=== PATIENT | female | born 1955 ===

== ENCOUNTER 2018-11-21 13:16 | Inpatient (IN) | payer MEDICAID ==
--- NOTE | 2018-11-21 13:35 | Event Note ---
ED Screening Note Date of service: 11/21/18 Time: 13:31 ED Screening Note: 63 y/o female comes in for chest pain, SOB and worsting of her speech 2 days ago. Had nose bleed and out of mouth on Wednesday. Increase diff with speech this morning about 0830. This initial assessment/diagnostic orders/clinical plan/treatment(s) is/are subject to change based on patients health status, clinical progression and re- assessment by fellow clinical providers in the ED. Further treatment and workup at subsequent clinical providers discretion. Patient/guardian urged not to elope from the ED as their condition may be serious if not clinically assessed and managed. Initial orders include:
[2018-11-21 14:11] LABS: Basophils % (Auto) 0.6 % (0.0-1.8); Eosinophils % (Auto) 0.7 % (0.0-4.3); Hematocrit 31.8 % (30.3-42.9); Hemoglobin 10.4 gm/dl (10.1-14.3); Lymphocytes # (Auto) 1.8 K/mm3 (1.2-5.4); Lymphocytes % (Auto) 40.8 % (13.4-35.0); Mean Corpuscular HGB Conc 33 % (30-34); Mean Corpuscular Volume 85 fl (79-97); Monocytes # (Auto) 0.3 K/mm3 (0.0-0.8); Monocytes % (Auto) 6.3 % (0.0-7.3); Platelet Count 191 K/mm3 (140-440); Red Blood Count 3.75 M/mm3 (3.65-5.03)
--- NOTE | 2018-11-21 14:20 | Emergency Department Report ---
ED Neuro Deficit HPI - General Chief Complaint: Neuro Symptoms/Deficit Stated Complaint: CHEST PAIN/TIGHT Time Seen by Provider: 11/21/18 13:31 Source: patient, old records reviewed Mode of arrival: Ambulatory Limitations: No Limitations - History of Present Illness Initial Comments: 63-year-old female with a past medical history of COPD, CVA with residual right- sided deficit, not insulin-dependent diabetes, and hypertension presents to the Hospital complaining of not feeling well for the past 2 days. She's had intermittent headache, epistaxis, and weakness. At her baseline patient is able to ambulate with a cane and sometimes independently without assistance device Since 4 AM patient has noticed that she had increased numbness described as a c old feeling to the right side of her body and increased right-sided weakness compared to baseline. He is having difficulty ambulating, difficulty speaking, and left-sided facial weakness which is new since 4 AM. Patient takes some aspirin and went back to sleep. She woke up at 8 AM with unimproved symptoms and decided come to the hospital. Patient has been noncompliant with her daily aspirin regimen and has been out of her blood pressure medication times one week. Pt also c/o chest pain. - Related Data Allergies/Adverse Reactions: Allergies Allergy/AdvReac Type Severity Reaction Status Date / Time No Known Allergies Allergy Unverified 11/22/14 09:45 ED Review of Systems ROS: Stated complaint: CHEST PAIN/TIGHT Other details as noted in HPI Comment: All other systems reviewed and negative ED Past Medical Hx - Past Medical History Hx Hypertension: Yes Hx CVA: Yes (01/2014- right) Hx Diabetes: Yes Hx COPD: Yes - Surgical History Additional Surgical History: left index finger amputation - Social History Smoking Status: Never Smoker Substance Use Type: None ED Neuro Physical Exam - General Limitations: No Limitations Suspected Stroke: Yes - Neurological Exam Neurological exam: Present: alert - NIHSS Assessment Interval: Baseline 1a. Level of Consciousness: alert/keenly responsive 1b. LOC Questions: answers both correctly 1c. LOC Commands: performs tasks correctly 2. Best Gaze: normal 3. Visual: no visual loss 4. Facial Palsy: partial paralysis 5b. Motor Arm Right: drift 5a. Motor Arm Left: no drift 6a. Motor Leg Left: drift 6b. Motor Leg Right: drift 7. Limb Ataxia: absent 8. Sensory: normal 9. Best Language: no aphasia 10. Dysarthria: mild/moderate dysarthria 11. Extinction/Inattention: no abnormality Total Score: 6 Stroke Severity: Moderate Stroke - Other Other exam information: General: No acute distress Head: Atraumatic normocephalic Eyes: Normal appearance, pupils equal reactive to light, extraocular movements intact ENT: Normal oropharynx Neck: Normal appearance, no C-spine tenderness, no meningismus Chest: Clear to auscultation bilaterally, no wheezes, rales, or crackles Cardiovascular: Regular rate and rhythm Abdomen: Soft, nondistended, nontender, no rebound or guarding, normal bowel sounds Back: Normal inspection, nontender Extremity: Normal inspection, no deformity, full range of motion Neuro: Alert and oriented 3, see NIH stroke scale Psychiatric: Normal affect Skin: No rash, warmth, or erythema ED Course Vital Signs 11/21/18 11/21/18 11/21/18 13:31 13:51 14:01 Temperature 98.9 F Pulse Rate 61 68 61 Respiratory 20 16 12 Rate Blood Pressure 239/105 238/107 O2 Sat by Pulse 99 100 Oximetry 11/21/18 14:31 Temperature Pulse Rate 57 L Respiratory 13 Rate Blood Pressure 179/82 O2 Sat by Pulse 98 Oximetry - Lab Data Result diagrams: 11/21/18 13:50 11/21/18 13:50 Lab Results 11/21/18 11/21/18 11/21/18 Range/Units 13:44 13:50 13:50 WBC 4.3 L (4.5-11.0) K/mm3 RBC 3.75 (3.65-5.03) M/mm3 Hgb 10.4 (10.1-14.3) gm/dl Hct 31.8 (30.3-42.9) % MCV 85 (79-97) fl MCH 28 (28-32) pg MCHC 33 (30-34) % RDW 20.1 H (13.2-15.2) % Plt Count 191 (140-440) K/mm3 Lymph % (Auto) 40.8 H (13.4-35.0) % [place]y % (Auto) 6.3 (0.0-7.3) % Eos % (Auto) 0.7 (0.0-4.3) % Baso % (Auto) 0.6 (0.0-1.8) % Lymph # 1.8 (1.2-5.4) K/mm3 D[place]y # 0.3 (0.0-0.8) K/mm3 Eos # 0.0 (0.0-0.4) K/mm3 Baso # 0.0 (0.0-0.1) K/mm3 Seg Neutrophils % 51.6 (40.0-70.0) % Seg Neutrophils # 2.2 (1.8-7.7) K/mm3 PT 12.5 (12.2-14.9) Sec. INR 0.96 (0.87-1.13) APTT 27.2 (24.2-36.6) Sec. Thrombin Time (15.1-19.6) Sec. Sodium (137-145) mmol/L Potassium (3.6-5.0) mmol/L Chloride (98-107) mmol/L Carbon Dioxide (22-30) mmol/L Anion Gap mmol/L BUN (7-17) mg/dL Creatinine (0.7-1.2) mg/dL Estimated GFR ml/min BUN/Creatinine Ratio % Glucose (65-100) mg/dL POC Glucose 107 H (70-105) Calcium (8.4-10.2) mg/dL Troponin T (0.00-0.029) ng/mL 11/21/18 11/21/18 Range/Units 13:50 13:50 WBC (4.5-11.0) K/mm3 RBC (3.65-5.03) M/mm3 Hgb (10.1-14.3) gm/dl Hct (30.3-42.9) % MCV (79-97) fl MCH (28-32) pg MCHC (30-34) % RDW (13.2-15.2) % Plt Count (140-440) K/mm3 Lymph % (Auto) (13.4-35.0) % [place]y % (Auto) (0.0-7.3) % Eos % (Auto) (0.0-4.3) % Baso % (Auto) (0.0-1.8) % Lymph # (1.2-5.4) K/mm3 [place]y # (0.0-0.8) K/mm3 Eos # (0.0-0.4) K/mm3 Baso # (0.0-0.1) K/mm3 Seg Neutrophils % (40.0-70.0) % Seg Neutrophils # (1.8-7.7) K/mm3 PT (12.2-14.9) Sec. INR (0.87-1.13) APTT (24.2-36.6) Sec. Thrombin Time 16.3 (15.1-19.6) Sec. Sodium 142 (137-145) mmol/L Potassium 4.1 (3.6-5.0) mmol/L Chloride 106.0 (98-107) mmol/L Carbon Dioxide 24 (22-30) mmol/L Anion Gap 16 mmol/L BUN 15 (7-17) mg/dL Creatinine 0.6 L (0.7-1.2) mg/dL Estimated GFR > 60 ml/min BUN/Creatinine Ratio 25 % Glucose 103 H (65-100) mg/dL POC Glucose (70-105) Calcium 9.5 (8.4-10.2) mg/dL Troponin T < 0.010 (0.00-0.029) ng/mL - EKG Data -: EKG Interpreted by Nv EKG shows normal: sinus rhythm, axis (qrs 60), QRS complexes (qrsd 92), ST-T waves (no stemi/lvh) Rate: bradycardia (58) When compared to previous EKG there are: previous EKG unavailable - Radiology Data Radiology results: report reviewed CT head/brain wo con INDICATION / CLINICAL INFORMATION: 63 years Female; MAIN: neuro deficits <6hrs or sx present upon awakening CODE STROKE [phone]. TECHNIQUE: Routine CT head without contrast. All CT scans at this location are performed using CT dose reduction for ALARA by means of automated exposure control. COMPARISON: None. FINDINGS: BRAIN / INTRACRANIAL CONTENTS: No acute hemorrhage, mass effect, midline shift, hydrocephalus, or acute, large territorial infarct. No chronic infarct or focal atrophy. Normal brain volume and ventricular/sulcal size for age. No significant white matter abnormality. CRANIOCERVICAL JUNCTION: No significant abnormality. ORBITS: No significant abnormality of visualized orbits. SINUSES / MASTOIDS: No significant abnormality of the visualized paranasal sinuses or mastoid air cells. ADDITIONAL FINDINGS: Atherosclerotic disease seen in the anterior circulation. IMPRESSION: 1. No focal mass, hemorrhage, hydrocephalus, or acute, large territorial infarct. CHEST X-RAY, 2 VIEWS: HISTORY: Shortness of breath FINDINGS: Heart size and pulmonary vascularity are borderline. Trace pleural effusions are suspected on the lateral image. No consolidation or pneumothorax. The thoracic cage is grossly intact. IMPRESSION: Correlate for early CHF. - Medical Decision Making Patient presents with elevated blood pressure and medication noncompliance BP is spontaneously reducing. Neurology evaluated patient not a TPA candidate Hospitalist informed for admission pt also c/o cp. ekg not stemi, initial trop neg - Differential Diagnosis CVA, ICH, hypertensive emergency - Thrombolytic Inclusion/Exclusion Thrombolytic Exclusion Criteria: Symptom Onset > 3 Hours Critical Care Time: No Critical care attestation.: If time is entered above; I have spent that time in minutes in the direct care of this critically ill patient, excluding procedure time. ED Disposition Clinical Impression: Hemiparesis affecting right side as late effect of cerebrovascular accident, Slurred speech, Weakness, Uncontrolled hypertension, Noncompliance with medication regimen, Diabetes, Chest pain Disposition: DC-[id number] OP ADMIT IP TO THIS HOSP Is pt being admited?: Yes Does the pt Need Aspirin: Yes Condition: Stable Instructions: Chest Pain (ED) Time of Disposition: 14:54
[2018-11-21 14:24] LABS: Red Cell Distribution Width 20.1 % (13.2-15.2)
[2018-11-21 14:26] LABS: BUN/Creatinine Ratio 25; Blood Urea Nitrogen 15 mg/dL (7-17); Calcium 9.5 mg/dL (8.4-10.2); Hemolysis Index 4
[2018-11-21 14:27] LABS: INR 0.96 (0.87-1.13)
[2018-11-21 14:28] LABS: Partial Thromboplastin Time 27.2 Sec. (24.2-36.6)
--- NOTE | 2018-11-21 14:40 | Cat Scan Report ---
CT head/brain wo con INDICATION / CLINICAL INFORMATION: 63 years Female; MAIN: neuro deficits <6hrs or sx present upon awakening CODE STROKE [phone]. TECHNIQUE: Routine CT head without contrast. All CT scans at this location are performed using CT dos e reduction for ALARA by means of automated exposure control. COMPARISON: None. FINDINGS: BRAIN / INTRACRANIAL CONTENTS: No acute hemorrhage, mass effect, midline shift, hydrocephalus, or acu te, large territorial infarct. No chronic infarct or focal atrophy. Normal brain volume and ventricul ar/sulcal size for age. No significant white matter abnormality. CRANIOCERVICAL JUNCTION: No significant abnormality. ORBITS: No significant abnormality of visualized orbits. SINUSES / MASTOIDS: No significant abnormality of the visualized paranasal sinuses or mastoid air berna ls. ADDITIONAL FINDINGS: Atherosclerotic disease seen in the anterior circulation. IMPRESSION: 1. No focal mass, hemorrhage, hydrocephalus, or acute, large territorial infarct. Signer Name: Flako Meléndez MD, III Signed: 11/21/2018 2:36 PM Workstation Name: [id number]
[2018-11-21] MEDS ORDERED: ASPIRIN PO ONE (14:54)
--- NOTE | 2018-11-21 15:15 | XRay Report ---
CHEST 1 VIEW INDICATION: sob, cp. COMPARISON: 11/22/2014 FINDINGS: Support devices: None. Heart: Borderline cardiomegaly. Lungs/Pleura: No acute air space or interstitial disease. Additional findings: None. IMPRESSION: 1. No acute findings. Signer Name: Awais Calabrese MD Signed: 11/21/2018 3:10 PM Workstation Name: [id number]
--- NOTE | 2018-11-21 16:25 | Emergency Department Report ---
ED Neuro Deficit HPI - General Chief Complaint: Neuro Symptoms/Deficit Stated Complaint: CHEST PAIN/TIGHT Time Seen by Provider: 11/21/18 13:31 Source: patient, old records reviewed Mode of arrival: Ambulatory Limitations: No Limitations - History of Present Illness Initial Comments: [facility] TeleStroke Metrics: LKW: Wednesday Door Time: 1316 [facility] Contacted: 1340 [facility] at Bedside: 1345 NIHSS: 1355 Decision on Alteplase: Not to give as her last known well time is greater than 4.5 hours prior to her presentation. Interventional Candidate: Not a candidate as her symptoms are not consistent with a large vessel proximal occlusion. Chief Complaint: Altered mental status and chest tightness HPI: Asked to see this patient in telemedicine consultation. Consultation was performed with assistance of ancillary / medical staff at bedside. Verbal consent to perform the examination with telemedicine was obtained. Patient agreed to proceed with the consultation. 63-year-old right-handed -[place] female who comes to the emergency room for chest tightness and overall not feeling well. She does report a history of stroke several years ago, and has chronic right-sided weakness. She currently is not taking any aspirin. Her brother about a week ago, and they recently laid him to rest on Wednesday. Patient states that she started feeling funny on Wednesday. She took some Tylenol and slept. She continued to sleep all day on Wednesday. Then she woke up around 4 AM this morning and noted having trouble talking and had severe generalized weakness. She was unable to get up to go to the bathroom. She later on developed some nasal discharge and nosebleeding. She also described not being able to move both her legs. She also developed chest tightness and she did not feel "right in the head". On passive observation, the patient was able to ambulate from her wheelchair to the ER stretcher. She did have some right sided weakness. She also had uncontrolled hypertension with blood pressures at 230/107 initially. PMH: Diabetes mellitus, hypertension, COPD, and prior left hemisphere stroke with chronic right-sided weakness SOC: Positive for ongoing tobacco abuse. Patient drinks occasional alcohol. No illicit drug use. Patient lives with roommates. FMH: Positive for stroke. ROS: 13 point review of systems were reviewed with the patient, and are all negative with the exception of the aforementioned in the history of present illness. VS: Blood pressure 238/107 Exam: Patient is in no apparent distress. Patient appears as stated age. No obvious acute respiratory or cardiac distress. Patient is well groomed and well-nourished. 1a- LOC: Keenly responsive - 0 1b- LOC questions: Answers both questions correctly - 0 1c- LOC commands- Performs both tasks correctly- 0 2- Gaze: Normal; no gaze paresis or gaze deviation - 0 3- Visual Marr: normal, no Visual field deficit - 0 4- Facial movements: no facial palsy - 0 5- Upper limb motor right arm drift - 1 6- Lower limb motor right leg drift - 1 7- Limb Coordination: absent ataxia - 0 8- Sensory: right sensory loss - 1 9- Language - No aphasia - 0 10- Speech - Mild dysarthria - 1 11- Neglect / Extinction - none found - 0 NIHSS score: 4 Diagnostic Data: CT of the head showed no acute intracranial process Blood glucose 107 Medical Data Reviewed: 1.Data?reviewed include clinical labs, radiology,?and medical tests; 2.Tests?results discussed w/performing or interpreting physician; 3.Obtaining/reviewing old medical records; 4.Obtaining?case history from another source; 5.Independent?review of image, tracing, or specimen. Medical Decision Making: - Extensive number of diagnosis or management options are considered below. - Extensive amount of complex data reviewed. - High risk of complication and/or morbidity or mortality are associated with differential diagnostic considerations below. - There may be?uncertain?outcome and increased probability of prolonged functional impairment or high probability of severe prolonged functional impairment associated with some of these differential diagnosis. Differential Diagnosis for Stroke: 1.?Cardioembolic?stroke 2. Small vessel disease/lacune 3. Thromboembolic, gqyjqb-[id number]-stuyam mechanism 4.?Hypercoagulable?state-related infarct 5. Transient ischemic attack 6. Thrombotic mechanism, large artery disease Assessment: 1. Possible acute hypertensive encephalopathy/urgency versus recurrent left hemisphere stroke 2. Prior left hemisphere stroke with chronic right-sided weakness 3. Tobacco abuse 4. Hypertension 5. Diabetes mellitus 6. COPD Recommendations: Patient can be admitted to the hospital for further work-up of her symptoms. Start the patient on aspirin 325 mg daily. Okay to maintain systolic blood pressure to be between 160-180 and diastolic blood pressure less than 100. Check MRI of the brain without contrast to rule out any acute intracranial process. Check MRA of the head and neck to evaluate her intracranial and extracranial blood vessels. Check echocardiogram to gauge her cardiac function. Maintain the patient on telemetry to look for paroxysmal atrial fibrillation. Check hemoglobin A1c, lipid panel, and urine drug screen. Consult PT, OT, ST. Continue supportive care. Thank you for allowing [facility] to participate in the care of your patient. Please call me, Dr. Abdalla, with any questions at [phone]. Case discussed with the ER staff and Dr. Cruz. Critical Care notation: I was called to see this critical patient emergently. I personally evaluated t his critical patient for acute stroke evaluation, and determining their eligibility for IV Alteplase and interventional therapies. I have spent approximately 15 minutes with the patient, including time at bedside, time discussing the case with other physicians, reviewing plan of care, and time inde pendently reviewing the records and scans. - Related Data Home Medications: Home Medications Medication Instructions Recorded Confirmed Last Taken cloNIDine [Catapres] 1 mg PO QDAY 11/21/18 11/21/18 11/20/18 metFORMIN [Glucophage] 500 mg PO BID 11/21/18 11/21/18 11/21/18 traMADol [Ultram] 50 mg PO QDAY 11/21/18 11/21/18 11/20/18 Allergies/Adverse Reactions: Allergies Allergy/AdvReac Type Severity Reaction Status Date / Time No Known Allergies Allergy Unverified 11/22/14 09:45 ED Review of Systems ROS: Stated complaint: CHEST PAIN/TIGHT Other details as noted in HPI ED Past Medical Hx - Past Medical History Hx Hypertension: Yes Hx CVA: Yes (01/2014- right) Hx Diabetes: Yes Hx COPD: Yes - Surgical History Additional Surgical History: left index finger amputation - Social History Smoking Status: Never Smoker Substance Use Type: None - Medications Home Medications: Home Medications Medication Instructions Recorded Confirmed Last Taken Type cloNIDine [Catapres] 1 mg PO QDAY 11/21/18 11/21/18 11/20/18 History metFORMIN [Glucophage] 500 mg PO BID 11/21/18 11/21/18 11/21/18 History traMADol [Ultram] 50 mg PO QDAY 11/21/18 11/21/18 11/20/18 History ED Neuro Physical Exam - General Limitations: No Limitations Suspected Stroke: Yes - NIHSS Assessment Interval: Baseline 1a. Level of Consciousness: alert/keenly responsive 1b. LOC Questions: answers both correctly 1c. LOC Commands: performs tasks correctly 2. Best Gaze: normal 3. Visual: no visual loss 4. Facial Palsy: normal symmetrical movement 5b. Motor Arm Right: drift 5a. Motor Arm Left: no drift 6a. Motor Leg Left: no drift 6b. Motor Leg Right: drift 7. Limb Ataxia: absent 8. Sensory: mild/moderate sensory loss 9. Best Language: no aphasia 10. Dysarthria: mild/moderate dysarthria 11. Extinction/Inattention: no abnormality Total Score: 4 Stroke Severity: Minor Stroke ED Course Vital Signs 11/21/18 11/21/18 11/21/18 13:31 13:51 14:01 Temperature 98.9 F Pulse Rate 61 68 61 Respiratory 20 16 12 Rate Blood Pressure 239/105 238/107 O2 Sat by Pulse 99 100 Oximetry 11/21/18 11/21/18 11/21/18 14:31 15:01 15:31 Temperature Pulse Rate 57 L 70 69 Respiratory 13 16 16 Rate Blood Pressure 179/82 251/106 211/115 O2 Sat by Pulse 98 100 100 Oximetry - Lab Data Result diagrams: 11/21/18 13:50 11/21/18 13:50 Lab Results 11/21/18 11/21/18 11/21/18 Range/Units 13:44 13:50 13:50 WBC 4.3 L (4.5-11.0) K/mm3 RBC 3.75 (3.65-5.03) M/mm3 Hgb 10.4 (10.1-14.3) gm/dl Hct 31.8 (30.3-42.9) % MCV 85 (79-97) fl MCH 28 (28-32) pg MCHC 33 (30-34) % RDW 20.1 H (13.2-15.2) % Plt Count 191 (140-440) K/mm3 Lymph % (Auto) 40.8 H (13.4-35.0) % [place]ar % (Auto) 6.3 (0.0-7.3) % Eos % (Auto) 0.7 (0.0-4.3) % Baso % (Auto) 0.6 (0.0-1.8) % Lymph # 1.8 (1.2-5.4) K/mm3 Lamar # 0.3 (0.0-0.8) K/mm3 Eos # 0.0 (0.0-0.4) K/mm3 Baso # 0.0 (0.0-0.1) K/mm3 Seg Neutrophils % 51.6 (40.0-70.0) % Seg Neutrophils # 2.2 (1.8-7.7) K/mm3 PT 12.5 (12.2-14.9) Sec. INR 0.96 (0.87-1.13) APTT 27.2 (24.2-36.6) Sec. Thrombin Time (15.1-19.6) Sec. Sodium (137-145) mmol/L Potassium (3.6-5.0) mmol/L Chloride (98-107) mmol/L Carbon Dioxide (22-30) mmol/L Anion Gap mmol/L BUN (7-17) mg/dL Creatinine (0.7-1.2) mg/dL Estimated GFR ml/min BUN/Creatinine Ratio % Glucose (65-100) mg/dL POC Glucose 107 H (70-105) Calcium (8.4-10.2) mg/dL Troponin T (0.00-0.029) ng/mL 11/21/18 11/21/18 Range/Units 13:50 13:50 WBC (4.5-11.0) K/mm3 RBC (3.65-5.03) M/mm3 Hgb (10.1-14.3) gm/dl Hct (30.3-42.9) % MCV (79-97) fl MCH (28-32) pg MCHC (30-34) % RDW (13.2-15.2) % Plt Count (140-440) K/mm3 Lymph % (Auto) (13.4-35.0) % Lamar % (Auto) (0.0-7.3) % Eos % (Auto) (0.0-4.3) % Baso % (Auto) (0.0-1.8) % Lymph # (1.2-5.4) K/mm3 Lamar # (0.0-0.8) K/mm3 Eos # (0.0-0.4) K/mm3 Baso # (0.0-0.1) K/mm3 Seg Neutrophils % (40.0-70.0) % Seg Neutrophils # (1.8-7.7) K/mm3 PT (12.2-14.9) Sec. INR (0.87-1.13) APTT (24.2-36.6) Sec. Thrombin Time 16.3 (15.1-19.6) Sec. Sodium 142 (137-145) mmol/L Potassium 4.1 (3.6-5.0) mmol/L Chloride 106.0 (98-107) mmol/L Carbon Dioxide 24 (22-30) mmol/L Anion Gap 16 mmol/L BUN 15 (7-17) mg/dL Creatinine 0.6 L (0.7-1.2) mg/dL Estimated GFR > 60 ml/min BUN/Creatinine Ratio 25 % Glucose 103 H (65-100) mg/dL POC Glucose (70-105) Calcium 9.5 (8.4-10.2) mg/dL Troponin T < 0.010 (0.00-0.029) ng/mL Critical care attestation.: If time is entered above; I have spent that time in minutes in the direct care of this critically ill patient, excluding procedure time. ED Disposition Clinical Impression: Hemiparesis affecting right side as late effect of cerebrovascular accident, Uncontrolled hypertension, Chest pain Disposition: OP ADMIT IP TO THIS HOSP Is pt being admited?: Yes Does the pt Need Aspirin: Yes Condition: Stable Instructions: Chest Pain (ED), Hypertension (ED)
[2018-11-21] MEDS: ASPIRIN PO ONE ×2 (16:42→17:53)
[2018-11-21] MEDS ORDERED: APRESOLINE IV ONE (17:30)
[2018-11-21] MEDS: DILAUDID IV PRN (17:51)
--- NOTE | 2018-11-21 21:33 | History and Physical Report ---
History of Present Illness Date of examination: 11/21/18 Date of admission: 11/21/18 17:03 Chief complaint: Rt side weakness since 4 am History of present illness: 63-year-old female with a past medical history of COPD, CVA with residual right- sided deficit, not insulin-dependent diabetes, and hypertension presents to the Hospital complaining of not feeling well for the past 2 days. She's had intermittent headache, epistaxis, and weakness. At her baseline patient is able to ambulate with a cane and sometimes independently without assistance . Since 4 AM patient has noticed that she had increased numbness described as a cold feeling to the right side of her body and increased right-sided weakness compared to baseline. She is having difficulty ambulating, difficulty speaking, and Rt-sided facial weakness which is new since 4 AM. Patient takes some aspir in and went back to sleep. She woke up at 8 AM with unimproved symptoms and decided come to the hospital. Patient has been noncompliant with her daily aspirin regimen and has been out of her blood pressure medication times one week. Pt also c/o chest pain. Past Medical history Hypertension: Yes CVA: Yes (01/2014- right) Diabetes: Yes COPD: Yes Surgical History Additional Surgical History: left index finger amputation Social History Smoking Status: Never Smoker Substance Use Type: None Family History Htn Medications and Allergies Allergies Allergy/AdvReac Type Severity Reaction Status Date / Time No Known Allergies Allergy Unverified 11/22/14 09:45 Home Medications Medication Instructions Recorded Confirmed Last Taken Type cloNIDine [Catapres] 1 mg PO QDAY 11/21/18 11/21/18 11/20/18 History metFORMIN [Glucophage] 500 mg PO BID 11/21/18 11/21/18 11/21/18 History traMADol [Ultram] 50 mg PO QDAY 11/21/18 11/21/18 11/20/18 History Active Meds: Active Medications Hydromorphone HCl (Dilaudid) 0.5 mg IV Q3H PRN PRN Reason: Pain , Severe (7-10) Last Admin: 11/21/18 17:51 Dose: 0.5 mg Documented by: Exam - Constitutional Vitals: Temp Pulse Resp BP Pulse Ox 98.4 F 65 18 204/86 95 11/21/18 20:38 11/21/18 20:38 11/21/18 20:38 11/21/18 20:38 11/21/18 20:38 General appearance: Present: no acute distress, well-nourished - EENT Eyes: Present: PERRL ENT: hearing intact, clear oral mucosa - Neck Neck: Present: supple, normal ROM - Respiratory Respiratory effort: normal Respiratory: bilateral: CTA - Cardiovascular Heart rate: 78 Rhythm: regular Heart Sounds: Present: S1 & S2. Absent: rub, click - Extremities Extremities: no ischemia, pulses intact, pulses symmetrical, No edema Extremity abnormal: other (Rt side weakness present 3/5 power in both RUE and RLE) Peripheral Pulses: within normal limits - Abdominal General gastrointestinal: Present: soft, non-tender, non-distended, normal bowel sounds Female genitourinary: Present: normal - Rectal Rectal Exam: deferred - Integumentary Integumentary: Present: clear, warm, dry - Musculoskeletal Musculoskeletal: right sided weakness (3/5 power in RUE And RLE) - Psychiatric Psychiatric: appropriate mood/affect, intact judgment & insight - Neurologic Neurologic: CNII-XII intact, moves all extremities - Allied Health Allied health notes reviewed: nursing, case management Results - Labs CBC & Chem 7: 11/21/18 13:50 11/21/18 13:50 Labs: Laboratory Last Values WBC 4.3 K/mm3 (4.5-11.0) L 11/21/18 13:50 RBC 3.75 M/mm3 (3.65-5.03) 11/21/18 13:50 Hgb 10.4 gm/dl (10.1-14.3) 11/21/18 13:50 Hct 31.8 % (30.3-42.9) 11/21/18 13:50 MCV 85 fl (79-97) 11/21/18 13:50 MCH 28 pg (28-32) 11/21/18 13:50 MCHC 33 % (30-34) 11/21/18 13:50 RDW 20.1 % (13.2-15.2) H 11/21/18 13:50 Plt Count 191 K/mm3 (140-440) 11/21/18 13:50 Lymph % (Auto) 40.8 % (13.4-35.0) H 11/21/18 13:50 [place] % (Auto) 6.3 % (0.0-7.3) 11/21/18 13:50 Eos % (Auto) 0.7 % (0.0-4.3) 11/21/18 13:50 Baso % (Auto) 0.6 % (0.0-1.8) 11/21/18 13:50 Lymph # 1.8 K/mm3 (1.2-5.4) 11/21/18 13:50 [place] # 0.3 K/mm3 (0.0-0.8) 11/21/18 13:50 Eos # 0.0 K/mm3 (0.0-0.4) 11/21/18 13:50 Baso # 0.0 K/mm3 (0.0-0.1) 11/21/18 13:50 Seg Neutrophils % 51.6 % (40.0-70.0) 11/21/18 13:50 Seg Neutrophils # 2.2 K/mm3 (1.8-7.7) 11/21/18 13:50 PT 12.5 Sec. (12.2-14.9) 11/21/18 13:50 INR 0.96 (0.87-1.13) 11/21/18 13:50 APTT 27.2 Sec. (24.2-36.6) 11/21/18 13:50 16.3 Sec. (15.1-19.6) 11/21/18 13:50 Sodium 142 mmol/L (137-145) 11/21/18 13:50 Potassium 4.1 mmol/L (3.6-5.0) 11/21/18 13:50 Chloride 106.0 mmol/L (98-107) 11/21/18 13:50 Carbon Dioxide 24 mmol/L (22-30) 11/21/18 13:50 16 mmol/L 11/21/18 13:50 BUN 15 mg/dL (7-17) 11/21/18 13:50 0.6 mg/dL (0.7-1.2) L 11/21/18 13:50 Estimated GFR > 60 ml/min 11/21/18 13:50 25 % 11/21/18 13:50 Glucose 103 mg/dL (65-100) H 11/21/18 13:50 POC Glucose 107 (70-105) H 11/21/18 13:44 Calcium 9.5 mg/dL (8.4-10.2) 11/21/18 13:50 < 0.010 ng/mL (0.00-0.029) 11/21/18 13:50 Short CBC 11/21/18 Range/Units 13:50 WBC 4.3 L (4.5-11.0) K/mm3 Hgb 10.4 (10.1-14.3) gm/dl Hct 31.8 (30.3-42.9) % Plt Count 191 (140-440) K/mm3 BMP 11/21/18 13:50 Sodium 142 Potassium 4.1 Chloride 106.0 Carbon Dioxide 24 BUN 15 Creatinine 0.6 L Glucose 103 H Calcium 9.5 Cardiac Enzymes 11/21/18 11/21/18 Range/Units 13:50 21:46 Troponin T < 0.010 < 0.010 (0.00-0.029) ng/mL - Imaging and Cardiology EKG: report reviewed (Sinus Bradycardia,LVH 59/min) Chest x-ray: report reviewed (NAF) CT Scan - head: report reviewed (NAF) Assessment and Plan Advance Directives: Yes (Full code) VTE prophylaxis?: Chemical Plan of care discussed with patient/family: Yes - Patient Problems (1) Acute CVA (cerebrovascular accident) Current Visit: Yes Status: Acute Plan to address problem: CVA work up MRI/MRA/ECHO/CDS ordered Neuro consult requested (2) Hypertensive emergency Current Visit: Yes Status: Acute Plan to address problem: IV Hydralazine given and prn as necessary [place] and Coreg initiated (3) HTN (hypertension) Current Visit: Yes Status: Chronic Qualifiers: Hypertension type: essential hypertension Qualified Code(s): I10 - Essential (primary) hypertension Plan to address problem: Cont antihypertensives (4) T2DM (type 2 diabetes mellitus) Current Visit: Yes Status: Chronic Plan to address problem: Check A1c Cont coverage Adjust home meds (5) COPD (chronic obstructive pulmonary disease) Current Visit: Yes Status: Chronic Qualifiers: COPD type: unspecified COPD Qualified Code(s): J44.9 - Chronic obstructive pulmonary disease, unspecified Plan to address problem: Cont duonebs (6) DVT prophylaxis Current Visit: Yes Status: Acute Plan to address problem: on Lovenox and Gi prophylaxis
[2018-11-21] MEDS: HumaLOG SUB-Q SCH (22:00)
[2018-11-21] MEDS: GLUCOPHAGE PO SCH (22:23)
[2018-11-21] MEDS: ULTRAM PO SCH (22:23)
[2018-11-21] MEDS: CATAPRES PO SCH (22:24)
[2018-11-22] MEDS ORDERED: APRESOLINE IV PRN (00:25)
[2018-11-22] MEDS: DILAUDID IV PRN (00:42)
[2018-11-22] MEDS: CATAPRES PO SCH ×3 (06:12→21:57)
[2018-11-22] MEDS: COZAAR PO SCH ×2 (07:05→12:53)
[2018-11-22] MEDS: HumaLOG SUB-Q SCH ×4 (07:40→22:00)
[2018-11-22] MEDS ORDERED: DILAUDID IV PRN (07:55)
[2018-11-22] MEDS ORDERED: MILK OF MAGNESIA PO PRN (07:55)
[2018-11-22] MEDS ORDERED: TYLENOL PO PRN (07:55)
[2018-11-22] MEDS ORDERED: PERCOCET 5/325 PO PRN (07:55)
[2018-11-22] MEDS ORDERED: REGLAN PO PRN (07:55)
[2018-11-22] MEDS ORDERED: ZOFRAN IV PRN (07:55)
[2018-11-22] MEDS ORDERED: PHENERGAN PR PRN (07:55)
[2018-11-22] MEDS ORDERED: SODIUM CHLORIDE FLUSH SYRINGE 10 ML IV PRN (07:55)
[2018-11-22] MEDS ORDERED: DULCOLAX PR PRN (07:55)
[2018-11-22] MEDS ORDERED: LEXISCAN IV ONE (08:34)
[2018-11-22] MEDS: GLUCOPHAGE PO SCH ×2 (08:41→17:36)
--- NOTE | 2018-11-22 11:41 | Vascular Lab Report ---
BILATERAL CAROTID DOPPLER ULTRASOUND INDICATION : stroke TECHNIQUE: Grayscale and color Doppler imaging performed through the neck. COMPARISON: None FINDINGS: Right: There is no significant atherosclerotic disease. Peak systolic velocity in the CCA is 114 cm /s with end-diastolic velocity of 85 cm/s. Peak systolic velocity in the proximal ICA is 116 cm/s wit h end-diastolic velocity of 41 cm/s. ICA to CCA ratio is less than 2. There is antegrade flow in the ECA and the vertebral artery. Left: There is no significant atherosclerotic disease. Peak systolic velocity in the CCA is 95 cm/s w ith end-diastolic velocity of 28 cm/s. Peak systolic velocity in the proximal ICA is 78 cm/s with end -diastolic velocity of 26 cm/s. ICA to CCA ratio is less than 2. There is antegrade flow in the ECA and the vertebral artery. IMPRESSION: No hemodynamically significant stenosis by NASCET criteria. Signer Name: Americo Valentine Jr, MD Signed: 11/22/2018 11:37 AM Workstation Name: [id number]
[2018-11-22] MEDS: ASPIRIN PO SCH (12:50)
[2018-11-22] MEDS: COREG PO SCH ×2 (12:52→21:57)
--- NOTE | 2018-11-22 13:22 | Progress Note ---
Assessment and Plan Assessment and plan: Acute CVA. Follow-up MRI/MRA/ECHO/CDS ordered Neuro consult requested Accelerated hypertension. Continue current medications. Type 2 diabetes mellitus. Continue Accu-Cheks and sliding scale insulin. COPD. Continue duo nebs. Stable. History Interval history: No new issues overnight Hospitalist Physical - Constitutional Vitals: Temp Pulse Resp BP Pulse Ox 98.6 F 78 20 179/78 100 11/22/18 12:34 11/22/18 12:53 11/22/18 12:34 11/22/18 12:34 11/22/18 12:34 General appearance: Present: no acute distress, well-nourished - EENT Eyes: Present: PERRL, EOM intact ENT: hearing intact, clear oral mucosa, dentition normal - Neck Neck: Present: supple, normal ROM - Respiratory Respiratory effort: normal Respiratory: bilateral: CTA - Cardiovascular Rhythm: regular Heart Sounds: Present: S1 & S2. Absent: gallop, rub - Extremities Extremities: no ischemia, No edema, Full ROM - Abdominal General gastrointestinal: soft, non-tender, non-distended, normal bowel sounds - Integumentary Integumentary: Present: clear, warm, dry - Neurologic Neurologic: CNII-XII intact, moves all extremities Results - Labs CBC & Chem 7: 11/21/18 13:50 11/21/18 13:50 Labs: Laboratory Last Values WBC 4.3 K/mm3 (4.5-11.0) L 11/21/18 13:50 RBC 3.75 M/mm3 (3.65-5.03) 11/21/18 13:50 Hgb 10.4 gm/dl (10.1-14.3) 11/21/18 13:50 Hct 31.8 % (30.3-42.9) 11/21/18 13:50 MCV 85 fl (79-97) 11/21/18 13:50 MCH 28 pg (28-32) 11/21/18 13:50 MCHC 33 % (30-34) 11/21/18 13:50 RDW 20.1 % (13.2-15.2) H 11/21/18 13:50 Plt Count 191 K/mm3 (140-440) 11/21/18 13:50 Lymph % (Auto) 40.8 % (13.4-35.0) H 11/21/18 13:50 [place] % (Auto) 6.3 % (0.0-7.3) 11/21/18 13:50 Eos % (Auto) 0.7 % (0.0-4.3) 11/21/18 13:50 Baso % (Auto) 0.6 % (0.0-1.8) 11/21/18 13:50 Lymph # 1.8 K/mm3 (1.2-5.4) 11/21/18 13:50 [place] # 0.3 K/mm3 (0.0-0.8) 11/21/18 13:50 Eos # 0.0 K/mm3 (0.0-0.4) 11/21/18 13:50 Baso # 0.0 K/mm3 (0.0-0.1) 11/21/18 13:50 Seg Neutrophils % 51.6 % (40.0-70.0) 11/21/18 13:50 Seg Neutrophils # 2.2 K/mm3 (1.8-7.7) 11/21/18 13:50 PT 12.5 Sec. (12.2-14.9) 11/21/18 13:50 INR 0.96 (0.87-1.13) 11/21/18 13:50 APTT 27.2 Sec. (24.2-36.6) 11/21/18 13:50 16.3 Sec. (15.1-19.6) 11/21/18 13:50 Sodium 142 mmol/L (137-145) 11/21/18 13:50 Potassium 4.1 mmol/L (3.6-5.0) 11/21/18 13:50 Chloride 106.0 mmol/L (98-107) 11/21/18 13:50 Carbon Dioxide 24 mmol/L (22-30) 11/21/18 13:50 16 mmol/L 11/21/18 13:50 BUN 15 mg/dL (7-17) 11/21/18 13:50 0.6 mg/dL (0.7-1.2) L 11/21/18 13:50 Estimated GFR > 60 ml/min 11/21/18 13:50 25 % 11/21/18 13:50 Glucose 103 mg/dL (65-100) H 11/21/18 13:50 POC Glucose 94 (70-105) 11/22/18 12:58 Calcium 9.5 mg/dL (8.4-10.2) 11/21/18 13:50 < 0.010 ng/mL (0.00-0.029) 11/21/18 21:46 Active Medications - Current Medications Current Medications: Generic Name Dose Route Start Last Admin Trade Name Freq PRN Reason Stop Dose Admin Acetaminophen 650 mg 11/22/18 07:55 11/22/18 12:49 Tylenol PO 650 mg Q4H PRN Administration Pain, Mild (1-3) Aspirin 325 mg 11/22/18 10:00 11/22/18 12:50 Aspirin PO 325 mg QDAY DEBRA Administration Atorvastatin Calcium 40 mg 11/22/18 22:00 Lipitor PO QHS DEBRA Bisacodyl 10 mg 11/22/18 07:55 Dulcolax [place] QDAY PRN Constipation Carvedilol 6.25 mg 11/22/18 10:00 11/22/18 12:52 Coreg PO 6.25 mg BID DEBRA Administration Clonidine HCl 0.1 mg 11/21/18 22:00 11/22/18 06:12 Catapres PO 0.1 mg Q8H DEBRA Administration Hydralazine HCl 20 mg 11/22/18 00:25 11/22/18 00:42 Apresoline IV 20 mg Q4HR PRN Administration SBP > 160 Hydromorphone HCl 0.5 mg 11/22/18 07:55 Dilaudid IV Q3H PRN Pain , Severe (7-10) Insulin Human Lispro 0 unit 11/21/18 22:00 11/22/18 12:54 Humalog SUB-Q Not Given ACHS [facility] Protocol Losartan Potassium 100 mg 11/22/18 08:17 11/22/18 12:53 Cozaar PO 100 mg QDAY DEBRA Administration Magnesium Hydroxide 30 ml 11/22/18 07:55 Milk Of Magnesia PO Q4H PRN Constipation Metformin HCl 500 mg 11/21/18 22:00 11/22/18 08:41 Glucophage PO Not Given BIDDIAB DEBRA Metoclopramide HCl 10 mg 11/22/18 07:55 Reglan PO Q6H PRN Nausea And Vomiting Ondansetron HCl 4 mg 11/22/18 07:55 Zofran IV Q8H PRN Nausea And Vomiting Oxycodone/Acetaminophen 1 tab 11/22/18 07:55 Percocet 5/325 PO Q6H PRN Pain, Moderate (4-6) Promethazine HCl 25 mg 11/22/18 07:55 Phenergan [place] Q6H PRN Nausea And Vomiting Sodium Chloride 10 ml 11/22/18 07:55 Sodium Chloride Flush Syringe 10 Ml IV PRN PRN LINE FLUSH Tramadol HCl 50 mg 11/21/18 22:00 11/21/18 22:23 Ultram PO 50 mg QDAY DEBRA Administration
[2018-11-22] MEDS: ULTRAM PO SCH (17:37)
--- NOTE | 2018-11-22 18:39 | Consultation ---
History of Present Illness Consult date: 11/22/18 Chief complaint: left sided weakness History of present illness: This is a 63 YO F with history of stroke with left sided weakness who had not had aspirin nor BP meds for at least 1 week who presented with worsening left sided weakness. Pt admitted for stroke work up, not an Alteplase candidate. On my arrival she feels much better, back to her baseline weakness. Past History Past Medical History: COPD, stroke, other (diabetes) Past Surgical History: No surgical history Social history: lives with family Family history: hypertension Medications and Allergies Allergies Allergy/AdvReac Type Severity Reaction Status Date / Time No Known Allergies Allergy Unverified 11/22/14 09:45 Home Medications Medication Instructions Recorded Confirmed Last Taken Type cloNIDine [Catapres] 1 mg PO QDAY 11/21/18 11/21/18 11/20/18 History metFORMIN [Glucophage] 500 mg PO BID 11/21/18 11/21/18 11/21/18 History traMADol [Ultram] 50 mg PO QDAY 11/21/18 11/21/18 11/20/18 History Active Meds: Active Medications Acetaminophen (Tylenol) 650 mg PO Q4H PRN PRN Reason: Pain, Mild (1-3) Last Admin: 11/22/18 12:49 Dose: 650 mg Documented by: Aspirin (Aspirin) 325 mg PO QDAY [facility] Last Admin: 11/22/18 12:50 Dose: 325 mg Documented by: Atorvastatin Calcium (Lipitor) 40 mg PO QHS [facility] Bisacodyl (Dulcolax) 10 mg [place] QDAY PRN PRN Reason: Constipation Carvedilol (Coreg) 6.25 mg PO BID [facility] Last Admin: 11/22/18 12:52 Dose: 6.25 mg Documented by: Clonidine HCl (Catapres) 0.1 mg PO Q8H [facility] Last Admin: 11/22/18 17:36 Dose: 0.1 mg Documented by: Hydralazine HCl (Apresoline) 20 mg IV Q4HR PRN PRN Reason: SBP > 160 Last Admin: 11/22/18 00:42 Dose: 20 mg Documented by: Hydromorphone HCl (Dilaudid) 0.5 mg IV Q3H PRN PRN Reason: Pain , Severe (7-10) Insulin Human Lispro (Humalog) 0 unit SUB-Q ACHS [facility]; Protocol Last Admin: 11/22/18 17:37 Dose: Not Given Documented by: Losartan Potassium (Cozaar) 100 mg PO QDAY [facility] Last Admin: 11/22/18 12:53 Dose: 100 mg Documented by: Magnesium Hydroxide (Milk Of Magnesia) 30 ml PO Q4H PRN PRN Reason: Constipation Metformin HCl (Glucophage) 500 mg PO BIDDIAB [facility] Last Admin: 11/22/18 17:36 Dose: 500 mg Documented by: Metoclopramide HCl (Reglan) 10 mg PO Q6H PRN PRN Reason: Nausea And Vomiting Ondansetron HCl (Zofran) 4 mg IV Q8H PRN PRN Reason: Nausea And Vomiting Oxycodone/Acetaminophen (Percocet 5/325) 1 tab PO Q6H PRN PRN Reason: Pain, Moderate (4-6) Promethazine HCl (Phenergan) 25 mg [place] Q6H PRN PRN Reason: Nausea And Vomiting Sodium Chloride (Sodium Chloride Flush Syringe 10 Ml) 10 ml IV PRN PRN PRN Reason: LINE FLUSH Tramadol HCl (Ultram) 50 mg PO QDAY [facility] Last Admin: 11/22/18 17:37 Dose: 50 mg Documented by: Review of Systems Neurological: weakness Physical Examination - Vital Signs Vital Signs: Vital Signs Temp Pulse Resp BP Pulse Ox 98.9 F 61 20 239/105 99 11/21/18 13:31 11/21/18 13:31 11/21/18 13:31 11/21/18 13:31 11/21/18 13:31 - Constitutional General appearance: comfortable - EENT EENT: Present: PERRL, mucous membranes moist - Respiratory Respiratory: Present: lungs clear - Cardiovascular Cardiovascular: Present: regular rate - Gastrointestinal Gastrointestinal: Present: normoactive bowel sounds - Neurologic Cranial nerve examination: PERRL, face symmetric, tongue midline, facial droop Speech examination: intact Motor examination - right side: 5/5: biceps, triceps, wrist flexion, wrist extension, laborer pipelines, hip flexors, knee extensors, dorsiflexion, toe extension (EHL), plantarflexion Motor examination - left side: 4/5: biceps, triceps, wrist flexion, wrist extension, laborer pipelines, hip flexors, knee extensors, dorsiflexion, toe extension (EHL), plantarflexion (contractures in UE) Reflexes: 1+: ankle, bicep, knee, tricep Results - Laboratory Findings CBC and BMP: 11/21/18 13:50 11/21/18 13:50 Abnormal Lab Findings: Abnormal Labs 11/21/18 11/21/18 11/21/18 13:44 13:50 13:50 WBC 4.3 L RDW 20.1 H Lymph % (Auto) 40.8 H Creatinine 0.6 L Glucose 103 H POC Glucose 107 H 11/21/18 21:30 WBC RDW Lymph % (Auto) Creatinine Glucose POC Glucose 122 H - Diagnostic Findings Additional findings: MRI Brain pending Assessment and Plan This is a 63 YO F with worsening of her baseline left sided weakness, new stroke vs decompensation of old stroke REcommend: MRI/A, PT/OT/ST, lipids and A1C echo and carotids reviewed Continue aspirin and statin, VTE prophylaxis Continue care for all medical issues as you are doing POC discussed with patient at bedside
[2018-11-23] MEDS: CATAPRES PO SCH (06:07)
[2018-11-23 06:29] LABS: Chol/HDL Ratio 3.38 %
--- NOTE | 2018-11-23 07:43 | Discharge Summary ---
Providers - Providers Date of Admission: 11/21/18 17:03 Date of discharge: 11/23/18 Attending physician: XIOMARA LESLIE 11/22/18 Consult to Physician [CONS] Routine Comment: Consulting Provider: GONZÁLEZ LOVE Physician Instructions: Reason For Exam: CVA 11/22/18 07:55 Consult to Case Management [CONS] Routine Services Needed at Discharge: Home Health Services Physical Therapy Notified:: case management Consult to Dietitian/Nutrition [CONS] Routine Physician Instructions: Reason For Exam: Reason for Consult: Nutrition Recommendations Reason for Consult: Diet education Occupational Therapy Evaluate and Treat [CONS] Routine Comment: Reason For Exam: Neuro deficits Physical Therapy Evaluation and Treat [CONS] Routine Comment: Reason For Exam: Neuro deficits [facility] Reason for admission: CVA Condition: Stable Hospital course: 63-year-old female with a past medical history of COPD, CVA with residual right- sided deficit, not insulin-dependent diabetes, and hypertension presents to the Hospital complaining of not feeling well for the past 2 days [employer]. She reported intermittent headache, CP and weakness. At her baseline, patient is able to ambulate with a cane and sometimes independently without assistance . Since 4 AM [employer], patient noticed that she had increased numbness described as a cold feeling to the right side of her body and increased right-sided weakness compared to baseline. She was having difficulty ambulating, difficulty speaking, and Rt-sided facial weakness which is new since that time. Patient reportedly had not had aspirin nor BP meds for at least 1 week. After admission patient returned back to her baseline neurological status. Patient was not a candidate for TPA. The patient was seen by neurology in consultation who felt that this potentially was a new CVA/TIA versus decompensation of old stroke. Echocardiogram revealed moderate LVH with grade 2 diastolic dysfunction, mild left atrial enlargement and an EF of 65-70%. IV agitated saline contrast was used to assess intracardiac shunting which there was no atrial septal defect. Carotid Doppler showed no significant stenosis. MRI revealed no acute findings. Physical therapy evaluated the patient and recommended outpatient PT. Patient also had stress test to evaluate for chest pain which was found to be negative. Dedicated discharge time 38 minutes. Disposition: TO HOME OR SELFCARE Time spent for discharge: 36 Core Measure Documentation - Palliative Care Palliative Care/ Comfort Measures: Not Applicable - Core Measures Any of the following diagnoses?: stroke - Stroke Discharge Requirements Statin for LDL = or >70 mg/dl on DC: Yes Anticoag for atrial fib/atrial flutter: Not Applicable Antithrombotic for ischemic stroke: Yes Exam - Constitutional Vitals: Temp Pulse Resp BP Pulse Ox 97.9 F 62 18 136/65 98 11/23/18 03:24 11/23/18 06:07 11/23/18 03:24 11/23/18 06:07 11/23/18 03:24 General appearance: Present: no acute distress, well-nourished - EENT Eyes: Present: PERRL ENT: hearing intact, clear oral mucosa - Neck Neck: Present: supple, normal ROM - Respiratory Respiratory effort: normal Respiratory: bilateral: CTA - Cardiovascular Heart Sounds: Present: S1 & S2. Absent: rub, click - Extremities Extremities: pulses symmetrical, No edema Peripheral Pulses: within normal limits - Abdominal General gastrointestinal: Present: soft, non-tender, non-distended, normal bowel sounds Female genitourinary: Present: normal - Integumentary Integumentary: Present: clear, warm, dry - Musculoskeletal Musculoskeletal: gait normal, strength equal bilaterally - Psychiatric Psychiatric: appropriate mood/affect, intact judgment & insight - Neurologic Neurologic: CNII-XII intact, moves all extremities Plan Activity: advance as tolerated Weight Bearing Status: Weight Bear as Tolerated Diet: low fat, low cholesterol, low salt Special Instructions: physical therapy, home health RN Follow up with: [facility] MD RENE [Primary Care Provider] - 3-5 Days GONZÁLEZ LOVE MD [Staff Physician] - 7 Days Prescriptions: Aspirin 325 mg PO QDAY #30 tablet cloNIDine [Catapres] 1 mg PO QDAY #30 tablet Carvedilol [Coreg] 6.25 mg PO BID #60 tablet Losartan [Cozaar] 100 mg PO QDAY #30 tablet metFORMIN [Glucophage] 500 mg PO BID #60 tablet AtorvaSTATin [Lipitor] 40 mg PO QHS #30 tablet oxyCODONE /ACETAMINOPHEN [Percocet 5/325 mg] 1 tab PO Q6H PRN #12 tablet PRN Reason: Pain, Moderate (4-6) traMADol [Ultram 50 MG tab] 50 mg PO QDAY #10 tablet
[2018-11-23] MEDS: HumaLOG SUB-Q SCH ×2 (08:00→12:58)
[2018-11-23 08:28] VITALS: BP 153/81
[2018-11-23] MEDS ORDERED: ATIVAN IV NR (09:00)
--- NOTE | 2018-11-23 11:20 | Magnetic Resonance Report ---
MRA HEAD WITHOUT CONTRAST HISTORY: Cerebrovascular accident. Right arm and leg weakness. COMPARISON: none TECHNIQUE: Routine MRA of the head performed. 3-D/MIP reformats postprocessed. CONTRAST: none FINDINGS: MRA HEAD: OVERVIEW: There is no evidence of aneurysm or other vascular malformation. Intracranial vertebral arteries: No significant abnormality. Right vertebral artery is dominant. Both vertebral arteries contribute to the basilar artery origin.. Basilar artery: Basilar artery is decreased in size and slightly irregular in caliber of the origin o f the right anterior inferior cerebellar artery. This is likely related to the presence of orig in of the right posterior cerebral artery and a large left posterior communicating artery. Posterior cerebral arteries: No significant abnormality. Intracranial internal carotid arteries: Evaluation of the cavernous segment of the left internal davalos tid artery is remarkable for evidence of stenosis at the anterior Barbara of this segment of the LICA . This may be due to atherosclerotic disease. Possibility that this is an artifact secondary to tortu osity could also be considered. Anterior cerebral arteries: No significant abnormality. Middle cerebral arteries: No significant abnormality. IMPRESSION: 1. Diminutive caliber of the mid and distal basilar arteries likely related to origin of the ri ght posterior cerebral artery and a large left posterior communicating artery. 2. Potential stenosis at the anterior genu of the cavernous segment of the LICA. Similar findings cou ld be seen as an artifact secondary to tortuosity. Signer Name: Isidoro Chaves MD Signed: 11/23/2018 11:16 AM Workstation Name: [id number]
--- NOTE | 2018-11-23 12:03 | Magnetic Resonance Report ---
MR brain wo con INDICATION / CLINICAL INFORMATION: 63 years Female; MAIN: stroke, rt arm weakness Lt leg numbness. patient claustrophobic. TECHNIQUE: Multiplanar, multisequence MR images of the brain were obtained. Motion artifact COMPARISON: CT - 11/21/2018 FINDINGS: BRAIN / INTRACRANIAL CONTENTS: There are mild areas of increased signal intensity on FLAIR imaging in the white matter of the cerebr al hemispheres. These are nonspecific findings and may be related to microangiopathy (hypertension, d iabetes, atherosclerosis), given the patient's age. Otherwise, no acute ischemia, acute hemorrhage, or hydrocephalus. CRANIOCERVICAL JUNCTION: No significant abnormality. VASCULAR FLOW-VOIDS: No significant abnormality. ORBITS: No significant abnormality of visualized orbits. SINUSES / MASTOIDS: Mild to moderate mucosal thickening seen in the ethmoids. ADDITIONAL FINDINGS: None. IMPRESSION: 1. No focal mass, hemorrhage, hydrocephalus, or acute ischemia. Signer Name: Flako Meléndez MD, III Signed: 11/23/2018 11:59 AM Workstation Name: [id number]
[2018-11-23] MEDS: COZAAR PO SCH (12:54)
[2018-11-23] MEDS: ULTRAM PO SCH (12:57)
[2018-11-23] MEDS: COREG PO SCH (12:57)
[2018-11-23] MEDS: ASPIRIN PO SCH (12:57)
[2018-11-23] MEDS: GLUCOPHAGE PO SCH (13:16)
== END 2018-11-23 21:31 | disposition home or self-care (01) | DRG 92 ==
LOC: ED 13:16 → 4A 17:03
PROVIDERS: ADMIT Internal Medicine; ATTEND Hospitalist
DX: R29.810 Facial weakness (principal); I69.351 Hemiplegia and hemiparesis following cerebral infarction affecting right dominant side; I16.1 Hypertensive emergency; R47.81 Slurred speech; I10 Essential (primary) hypertension; E11.8 Type 2 diabetes mellitus with unspecified complications; R07.9 Chest pain, unspecified; J44.9 Chronic obstructive pulmonary disease, unspecified; Z82.49 Family history of ischemic heart disease and other diseases of the circulatory system; Z79.899 Other long term (current) drug therapy; Z82.3 Family history of stroke; Z89.021 Acquired absence of right finger(s); Z91.14 Patient's other noncompliance with medication regimen
CPT/HCPCS: 36415; 70450; 70544; 70551; 71045; 78452; 80048; 80061; 82962; 83036; 84484; 85025; 85610; 85670; 85730; 93005; 93010; 93017; 93306; 93880; G0378; A9270-GY; A9502; J0360; J1170; J2060; J2785